=== PATIENT | male | born 1965 | race American Indian/Alaskan Native ===

== ENCOUNTER 2021-05-06 01:06 | Emergency (ER) | payer SELFPAY ==
[2021-05-06 01:50] VITALS: BP 150/95
== END 2021-05-06 06:21 | disposition admitted as inpatient to this hospital (09) ==
LOC: ED 01:06
DX: R73.9 Hyperglycemia, unspecified (principal); Z53.21 Procedure and treatment not carried out due to patient leaving prior to being seen by health care provider
CPT/HCPCS: 82962

== ENCOUNTER 2021-05-07 22:09 | Emergency (ER) | payer SELFPAY | END 2021-05-08 05:22 | disposition left against medical advice (07) | LOC: ED 22:09 | DX: E16.2 Hypoglycemia, unspecified (principal); Z53.21 Procedure and treatment not carried out due to patient leaving prior to being seen by health care provider ==